=== PATIENT | male | born 1985 | race Caucasian/White ===

== ENCOUNTER 2017-01-28 22:20 | Emergency (ER) | payer BC ==
[2017-01-29 00:58] VITALS: BP 114/65
[2017-01-29] MEDS ORDERED: Ketorolac INJ* 60 MG/2 ML VIAL IM ONE (01:08)
--- NOTE | 2017-01-29 02:06 | ED ---
Lower Extremity - HPI Summary HPI Summary: 31M presents with left hip/groin pain s/p fall down stairs this morning. He states he stretched his leg out in front of him. He denies any back pain. He denies any numbness or tingling. He took ibuprofen. He is able to ambulate well. He denies any previous injury to the area. - History of Current Complaint Chief Complaint: EDGeneral Stated Complaint: FALL/ BACK PAIN Time Seen by Provider: 01/29/17 00:47 Pain Intensity: 6 - Allergies/Home Medications Allergies/Adverse Reactions: Allergies Allergy/AdvReac Type Severity Reaction Status Date / Time No Known Allergies Allergy Verified 11/15/14 21:39 PMH/Surg Hx/FS Hx/Imm Hx Endocrine/Hematology History: Denies: Hx Anticoagulant Therapy Cardiovascular History: Denies: Hx Hypertension Infectious Disease History: No Infectious Disease History: Denies: Traveled Outside the [place] in Last 30 Days - Family History Known Family History: Positive: Hypertension - Social History Alcohol Use: None Substance Use Type: Reports: Marijuana Smoking Status (MU): Light Every Day Tobacco Smoker Review of Systems Negative: Fever Negative: Chest Pain Negative: Shortness Of Breath Positive: Myalgia - left hip pain All Other Systems Reviewed And Are Negative: Yes Physical Exam Triage Information Reviewed: Yes Vital Signs On Initial Exam: Initial Vitals Temp Pulse Resp BP Pulse Ox 99.3 F 66 20 123/68 98 01/28/17 22:25 01/28/17 22:25 01/28/17 22:25 01/28/17 22:25 01/28/17 22:25 Vital Signs Reviewed: Yes Appearance: Positive: Well-Appearing Skin: Positive: Warm, Dry Head/Face: Positive: Normal Head/Face Inspection Eyes: Positive: Normal, Conjunctiva Clear Respiratory/Lung Sounds: Positive: Clear to Auscultation, Breath Sounds Present Cardiovascular: Positive: Normal, RRR Musculoskeletal: Positive: Limited @ - left hip with pain, Other - good pulses, tenderness over left hip, nontender back Diagnostics - Vital Signs Vital Signs Temp Pulse Resp BP Pulse Ox 01/29/17 00:55 98.4 F 55 16 114/65 98 01/28/17 22:25 99.3 F 66 20 123/68 98 - Laboratory Lab Statement: Any lab studies that have been ordered have been reviewed, and results considered in the medical decision making process. - Radiology hip Xray Interpretation: No Acute Changes Radiology Interpretation Completed By: ED Physician Lower Extremity Course/Dx - Course Course Of Treatment: 31M presents with left hip/groin pain s/p fall down stairs this morning. He states he stretched his leg out in front of him. He denies any back pain. He denies any numbness or tingling. He took ibuprofen. He is able to ambulate well. He denies any previous injury to the area. on exam tender over hip. xray hip normal. patient understands and agrees with plan. - Diagnoses Differential Diagnosis/HQI/PQRI: Positive: Contusion, Fracture (Closed), Sprain Provider Diagnoses: Left hip pain Discharge - Discharge Plan Condition: Good Disposition: HOME Patient Education Materials: Hip Sprain (ED) Forms: *Work Release Referrals: [facility] [place] PHYSICIAN REFERRAL [Outside] Additional Instructions: Take Tylenol or ibuprofen every 6 hours as needed for pain Apply ice, rest, elevate Establish care with primary care physician Return to ED if develop any new or worsening symptoms
--- NOTE | 2017-01-29 08:05 | RAD ---
Indication: LEFT hip pain post fall. Pain at the LEFT hip and groin. Comparison: No relevant prior exams available on the [facility] PACS for comparison. Technique: AP pelvis and AP and frog-leg lateral views LEFT hip. Report: The LEFT hip is normally located. No radiographic evidence for proximal LEFT femur or pelvic fracture. Negative for pelvic joint diastases. Both hips are remarkable for acetabular crossover sign consistent with cranial acetabular retroversion. In addition there is decreased anterolateral femoral head neck offset on the LEFT and probable similar finding on the RIGHT. Mild osteophytic lipping at the femoral head neck junctions. Small focus of cystic change at the LEFT femoral head neck junction. Negative for significant hip joint space narrowing. Unremarkable soft tissue contours. IMPRESSION: 1. No radiographic evidence for LEFT hip fracture. 2. 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
== END 2017-01-29 02:14 | disposition home or self-care (01) ==
LOC: ED 22:20
DX: M25.552 Pain in left hip (principal); F17.210 Nicotine dependence, cigarettes, uncomplicated
CPT/HCPCS: 96372; 99282; J1885

== ENCOUNTER → 2017-03-04 00:24 | Emergency (ER) | payer BC ==
[~2017-03-04 00:24] MED LIST: Potassium Chlor TAB* 20 MEQ TAB.ER PO ONE
[2017-03-04 00:52] VITALS: BP 133/79
[2017-03-04 03:34] LABS: Hematocrit 44 % (42-52); Hemoglobin 15.1 g/dl (14.0-18.0); Mean Corpuscular HGB Conc 35 g/dl (31-36); Mean Corpuscular Hemoglobin 33 pg (27-31); Mean Corpuscular Volume 97 fL (80-94); Mean Platelet Volume 8 um3 (7.4-10.4); Red Cell Distribution Width 13 % (10.5-15); White Blood Count 8.8 10^3/ul (3.5-10.8)
[2017-03-04 03:45] LABS: ALT 9 U/L (7-52); AST 15 U/L (13-39); Albumin 4.2 g/dL (3.2-5.2); Alcohol < 10 mg/dL (<10); Alkaline Phosphatase 30 U/L (34-104); Anion Gap 7 mmol/L (2-11); BUN/Creatinine Ratio 12.1 (8-20); Blood Urea Nitrogen 12 mg/dL (6-24); CO2 Carbon Dioxide 25 mmol/L (22-32); Calcium 8.9 mg/dL (8.6-10.3); Chloride 107 mmol/L (101-111); EGFR African American 112.7 (>60); EGFR Non-African American 87.6 (>60); Glucose 94 mg/dL (70-100); Potassium 3.2 mmol/L (3.5-5.0); Salicylate < 2.50 mg/dL (<30); Sodium 139 mmol/L (133-145); Total Protein 6.2 g/dL (6.4-8.9)
[2017-03-04 03:56] LABS: TSH (Thyroid Stimulating Horm) 1.31 mcIU/mL (0.34-5.60)
[2017-03-04 04:05] LABS: Acetaminophen < 15 mcg/mL
--- NOTE | 2017-03-04 06:46 | ED ---
Mihaela Nolan Rebecca, scribed for Danny Maya on 03/04/17 at 0201 . Psychiatric Complaint - HPI Summary HPI Summary: Pt is a 31 y/o M who presents to ED c/o worsening anxiety and depression. Pt states he has not had a Dx of anxiety, but he feels as though he has "always had anxiety and slight depression." Current sx aggravated by feeling lonely, alleviated by nothing. Pt reports he does not know many people in this area and most of his family is 4 hours away. Denies SI, HI and hallucinations. Is not on any medication and has never seen a psychiatrist. - History Of Current Complaint Chief Complaint: EDMentalHealth Time Seen by Provider: 03/04/17 01:28 Hx Obtained From: Patient Onset/Duration: Still Present Character: Depressed, Anxious Aggravating Factor(s): Other - Feeling lonely Alleviating Factor(s): Nothing Associated Signs And Symptoms: Positive: Negative Has Suicidal: Denies: Thoughts Has Homicidal: Denies: Thoughts - Allergies/Home Medications Allergies/Adverse Reactions: Allergies Allergy/AdvReac Type Severity Reaction Status Date / Time No Known Allergies Allergy Verified 03/04/17 00:54 PMH/Surg Hx/FS Hx/Imm Hx Endocrine/Hematology History: Denies: Hx Anticoagulant Therapy Cardiovascular History: Denies: Hx Hypertension Infectious Disease History: No Infectious Disease History: Denies: Traveled Outside the [place] in Last 30 Days - Family History Known Family History: Positive: Hypertension - Social History Alcohol Use: None Substance Use Type: Reports: Marijuana Smoking Status (MU): Light Every Day Tobacco Smoker Review of Systems Negative: Fever Positive: Anxious, Depressed, Other - NEGATIVE: SIs, HIs, hallucinations All Other Systems Reviewed And Are Negative: Yes Physical Exam - Summary Physical Exam Summary: Appearance: Well appearing, no pain distress Skin: warm, dry, reflects adequate perfusion Head/face: normal Eyes: EOMI, [place] ENT: normal Neck: supple, nontender Respiratory: CTA, breath sounds present Cardiovascular: RRR, pulses symmetrical Abdomen: nontender, soft Bowel: present Musculoskeletal: normal, strength/ROM intact Neuro: normal, sensory motor intact, A&Ox3 Psychiatric: Anxious and depressed Triage Information Reviewed: Yes Vital Signs On Initial Exam: Initial Vitals Temp Pulse Resp BP Pulse Ox 98.5 F 73 12 133/79 97 03/04/17 00:46 03/04/17 00:46 03/04/17 00:46 03/04/17 00:46 03/04/17 00:46 Vital Signs Reviewed: Yes Diagnostics - Vital Signs Vital Signs Temp Pulse Resp BP Pulse Ox 03/04/17 00:46 98.5 F 73 12 133/79 97 - Laboratory Result Diagrams: 03/04/17 03:03 03/04/17 03:03 Lab Statement: Any lab studies that have been ordered have been reviewed, and results considered in the medical decision making process. Course/Dx - Course Assessment/Plan: Pt is a 31 y/o M who presents to ED c/o worsening anxiety and depression. Pt states he has not had a Dx of anxiety, but he feels as though he has "always had anxiety and slight depression." Current sx aggravated by feeling lonely, alleviated by nothing. Pt reports he does not know many people in this area and most of his family is 4 hours away. Denies SI, HI and hallucinations. Is not on any medication and has never seen a psychiatrist. In the ED course, pt was given potassium chloride. Medically cleared for [facility] at 0625. Pt will be signed out, pending disposition, awaiting [facility]. Elevated BP noted and advised to f/u with PCP. - Differential Dx/Clinical Impression Provider Diagnosis: Depression, Anxiety Discharge - Discharge Plan Condition: Stable Disposition: OTHER Discharge Disposition Comment: Pt will be signed out, pending disposition, awaiting [facility]. The documentation as recorded by the Mihaela patterson Rebecca accurately reflects the service I personally performed and the decisions made by , Danny Maya.
[2017-03-04 06:49] LABS: Urine Bacteria Absent (Absent); Urine Bilirubin Negative (Negative); Urine Glucose Negative (Negative); Urine Nitrite Negative (Negative)
[2017-03-04 07:04] LABS: Benzodiazepine Urine Screen None Detected (None Detect)
== END ==
LOC: ED 00:24
DX: F41.8 Other specified anxiety disorders (principal)
CPT/HCPCS: 36415; 80053; 80307; 80320; 80329; 81003; 81015; 84443; 85025; 87086; 99284; A9270-GY; G0480